=== PATIENT | female | born 1935 | race Caucasian/White ===

== ENCOUNTER → 2018-09-15 | Outpatient (CLI) | payer MEDICARE ==
[2018-09-14 15:17] VITALS: BMI 24.9
[2018-09-15 12:30] VITALS: BP 131/66; PULSE 88; RESP 18
--- NOTE | 2018-09-15 12:51 | P.CONS ---
History of Present Illness - Reason for Consult Consult date: 09/15/18 - Chief Complaint Lower back pain - History of Present Illness This is an 82-year-old gentleman with a one-year history of lower back pain. The patient started with no precipitating events however he had lumbar laminectomy about 5 years ago. The patient denies any bowel or bladder dysfunction or any weakness in the lower extremities . His pain gets worse by standing for too long however sitting down decreases his pain significantly. The patient denies any radiation of his pain to the lower extremities. Review of Systems Constitutional: Denies chills, Denies fever Cardiovascular: Denies chest pain, Denies shortness of breath Respiratory: Denies cough Musculoskeletal: Reports as per HPI Neurological: Reports as per HPI Past Medical History Past Medical History: Coronary Artery Disease (CAD), Diabetes Mellitus, Hyperlipidemia, Hypertension Additional Past Medical History / Comment(s): lupus-low platelets,diet controlled History of Any Multi-Drug Resistant Organisms: None Reported Past Surgical History: Appendectomy, Back Surgery, Coronary Bypass/CABG, Heart Catheterization With Stent Additional Past Surgical History / Comment(s): CABG 1995,heart cath x4 with 4 stents,aortic aneurysm with graft,laminectomy l4-l5 Past Anesthesia/Blood Transfusion Reactions: No Reported Reaction Date of Last Stent Placement:: 2013 Smoking Status: Former smoker - Past Family History Mother Family Medical History: No Reported History Medications and Allergies Home Medications Medication Instructions Recorded Confirmed Type Aspirin 81 mg PO DAILY 09/14/18 09/14/18 History Carvedilol [Coreg] 3.125 mg PO BID 09/14/18 09/14/18 History Fenofibrate,Micronized 134 mg PO DAILY 09/14/18 09/14/18 History [Fenofibrate] Gabapentin [Neurontin] 800 mg PO TID 09/14/18 09/14/18 History Hydroxychloroquine Sulfate 200 mg PO DAILY 09/14/18 09/14/18 History [Plaquenil] Isosorbide Mononitrate [Ismo] 20 mg PO DAILY 09/14/18 09/14/18 History Multivit-Min/FA/Lycopen/Lutein 1 each PO DAILY 09/14/18 09/14/18 History [Centrum Silver Tablet] Mycophenolate Mofetil [Cellcept] 500 mg PO BID 09/14/18 09/14/18 History Pravastatin Sodium [Pravachol] 10 mg PO DAILY 09/14/18 09/14/18 History Allergies Allergy/AdvReac Type Severity Reaction Status Date / Time No Known Allergies Allergy Verified 09/14/18 15:05 Physical Exam Vitals: Vital Signs Pulse Resp BP Pulse Ox 09/15/18 12:17 88 18 131/66 97 Intake and Output 09/14/18 09/15/18 09/15/18 22:59 06:59 14:59 Other: Weight 65.771 kg - Constitutional General appearance: thin - EENT Eyes: PERRLA - Respiratory Respiratory: bilateral: CTA - Cardiovascular Rhythm: regular - Neurologic The physical exam was done in the patient's wheelchair. The patient denies using wheelchair at home. Neuro exam of the lower extremities showed areflexia, normal muscle strength bilaterally and symmetrically. He has mild tenderness around his well-healed scar from his previous back surgery bilaterally in the lumbar area. mild tenderness around the sacroiliac joints bilaterally. Straight leg raising test negative bilaterally Neurologic: CNII-XII intact - Psychiatric Psychiatric: A&O x's 3, appropriate affect, intact judgment & insight Results Results: Lumbar spine MRI shows postoperative left hemilaminectomy at the L3 4 and L4 5 levels, the degenerative disc disease and facet arthropathy, moderate neural foraminal stenosis at the L3-L4 level and bilaterally at the L4 5 level. Assessment and Plan Plan: An 82-year-old gentleman with axial lower back pain with no neurologic changes in the lower extremities. The patient may benefit from getting a diagnostic lumbar medial branch block under fluoroscopic guidance the lumbar area bilaterally and in the future if this one does not help his pain then we'll might need to do bilateral sacroiliac joint steroid injection under fluoroscopic guidance Diagnostically. In that the patient has lumbar stenosis on MRI however he denies any symptoms in the lower extremities. He wants to be a good candidate for caudal epidural steroid injection with lysis of adhesions in the future of the above-mentioned procedures do not help his pain. PQRS measures: 1-Patient's medications are documented in the chart. 2-Tobacco use is negative, counseling given 3-Patient has had a pneumococcal vaccine. 4-Advanced care planning discussed, patient unable to give 5-Opioid contract not signed with the patient. 6-Pain positive, follow-up visit or procedure scheduled 7-Patient's blood pressure measured and documented within normal limits. 8-Patient's weight was measured, and body mass index ABOVE the normal limits, and counseling was done. Patient instructed to follow up with PCP. 9-Patient WAS NOT identified as an unhealthy alcohol user.
== END | disposition home or self-care (01) ==
LOC: PNWHC3 12:01
PROVIDERS: ATTEND Anesthesiology
DX: M54.5 Low back pain (principal); I25.10 Atherosclerotic heart disease of native coronary artery without angina pectoris; E11.9 Type 2 diabetes mellitus without complications; E78.5 Hyperlipidemia, unspecified; I10 Essential (primary) hypertension; Z87.891 Personal history of nicotine dependence; Z79.82 Long term (current) use of aspirin; Z79.899 Other long term (current) drug therapy
CPT/HCPCS: 99201

== ENCOUNTER 2018-10-14 08:06 | Day surgery (SDC) | payer MEDICARE ==
[2018-09-22 16:01] VITALS: BMI 23.9
[~2018-10-14 08:06] MED LIST: LACTATED RINGERS 1,000 ML IV SCH
[2018-10-14] MEDS ORDERED: LIDOCAINE 1% 20 ML VIAL (10MG/ML) FOR IV START INTRADERMA ONE (08:35)
[2018-10-14 08:36] LABS: Glucose,Whole Blood 92 mg/dL (75-99)
[2018-10-14 08:38] VITALS: TEMP 97.3
--- NOTE | 2018-10-14 09:37 | P.PCN ---
Date of Procedure: 10/14/18 Surgeon: Pennie Stratton Pathology: none sent Condition: stable Disposition: PACU Description of Procedure: PREOPERATIVE DIAGNOSIS : 1- Lumbar spondylosis with Facet Arthropathy without myelopathy . 2- Lumber degenerative disc disease 3-postlaminectomy pain syndrome POSTOPERATIVE DIAGNOSIS: 1- Lumbar spondylosis with Facet Arthropathy without myelopathy . 2- Lumber degenerative disc disease 3-postlaminectomy pain syndrome PROCEDURE: Diagnostic bilateral L3 -4 , L4 -5 , and L5-S1 medial branch block under fluoroscopy ANESTHESIA: Local with 1% lidocaine; IV moderate conscious sedation with Versed 2 mg . EBL: Negligible COMPLICATION: None. PROCEDURE INDICATION: Chronic low back pain secondary to Facet arthropathy unresponsive to conservative treatment. PROCEDURE DESCRIPTION: the patient was seen and identified in the preop holding area , risks and benefits and possible complications of the procedure and alternatives were discussed with the patient, and the patient agreed to proceed with the procedure and signed the consent. IV was started and vital signs monitored during the procedure and fluoroscopy was used to maximize the benefit and accuracy of the needle placement, sedation was given to decrease patient anxiety, patient was taken to the procedure room and placed in prone position vital signs monitored. The patient was brought into the procedure room and placed in prone position. Skin was prepped with Chloraprep and draped in a sterile manner. The patient had an aortic aneurysm repair with a sleeve which obscured the view slightly on fluoroscopy. Lidocaine 1% was used to numb the skin up at the target points that were chosen as follows: at the L5-S1 level which corresponds to the dorsal ramus of L5 the target points were at the superior medial aspect of the sacral ala on each side of the spine on the AP view of fluoroscopy, and for the L3 and L4 medial branches the target points were the connection between the transverse process and the superior to go process of L4 and L5 respectively on the oblique views of fluoroscopy. I used 22-gauge 3-1/2 inch Quincke spinal needles for this procedure and after contacting bone at the target points mentioned above I injected 1 mL of a mixture of Kenalog 40 mg +5 MLS of Marcaine 0.5% PF . Patient tolerated procedure well. At the end of the procedure the needles removed and a bandage applied after the skin was cleaned the cleaning solution. patient was then taken to the recovery room in stable condition and monitored in the recovery room for 20-30 minutes and discharged home in stable condition after discharge criteria met .
[2018-10-14] MEDS ORDERED: LACTATED RINGERS 1,000 ML IV ONE (09:41)
[2018-10-14 09:45] VITALS: RESP 16
[2018-10-14 09:59] VITALS: BP 148/74; PULSE 51
--- NOTE | 2018-10-14 10:03 | FL ---
EXAMINATION TYPE: FL guided pain mgmt statistic DATE OF EXAM: 10/14/2018 CLINICAL HISTORY: Low back pain. TECHNIQUE: Fluoroscopy. COMPARISON: None. FINDINGS: Fluoroscopic guidance was provided during pain relief procedure performed by Dr. Stratton . A total of 14 seconds of fluoroscopic time was utilized during the procedure and 4 spot images are acquired. Images acquired shows needle localization at several levels in the lumbar spine with overl shawn aortobiiliac stent graft. IMPRESSION: As Above.
== END 2018-10-14 10:32 | disposition home or self-care (01) ==
LOC: ORPAIN 08:06
PROVIDERS: ATTEND Anesthesiology
DX: G89.29 Other chronic pain (principal); M47.816 Spondylosis without myelopathy or radiculopathy, lumbar region; M51.36 Other intervertebral disc degeneration, lumbar region; M96.1 Postlaminectomy syndrome, not elsewhere classified; I25.10 Atherosclerotic heart disease of native coronary artery without angina pectoris; I10 Essential (primary) hypertension; Z87.891 Personal history of nicotine dependence; E11.9 Type 2 diabetes mellitus without complications; E78.5 Hyperlipidemia, unspecified; M32.9 Systemic lupus erythematosus, unspecified; D69.6 Thrombocytopenia, unspecified; Z95.1 Presence of aortocoronary bypass graft; Z95.5 Presence of coronary angioplasty implant and graft; Z79.82 Long term (current) use of aspirin; Z79.899 Other long term (current) drug therapy
CPT/HCPCS: 64493; 64494; 64495; J2250; J3301; 99152

== ENCOUNTER 2018-11-05 08:28 | Day surgery (SDC) | payer MEDICARE ==
[2018-11-03 13:51] VITALS: BMI 23.9
[2018-11-05 08:51] VITALS: TEMP 97.1
[2018-11-05] MEDS ORDERED: LIDOCAINE 1% 20 ML VIAL (10MG/ML) FOR IV START INTRADERMA ONE (09:00)
[2018-11-05 09:05] LABS: Glucose,Whole Blood 101 mg/dL (75-99)
--- NOTE | 2018-11-05 09:33 | P.PCN ---
Date of Procedure: 11/05/18 Surgeon: Pennie Stratton Pathology: none sent Condition: stable Disposition: PACU Description of Procedure: PREOPERATIVE DIAGNOSIS : 1- Lumbar spondylosis with Facet Arthropathy without myelopathy . 2- Lumber degenerative disc disease POSTOPERATIVE DIAGNOSIS: 1- Lumbar spondylosis with Facet Arthropathy without myelopathy . 2- Lumber degenerative disc disease PROCEDURE: Diagnostic bilateral L2-3,L3 -4 , L4 -5 , and L5-S1 medial branch block under fluoroscopy ANESTHESIA: Local with 1% lidocaine; IV moderate conscious sedation with Versed 1 mg . EBL: Negligible COMPLICATION: None. PROCEDURE INDICATION: Chronic low back pain secondary to Facet arthropathy unresponsive to conservative treatment. PROCEDURE DESCRIPTION: the patient was seen and identified in the preop holding area , risks and benefits and possible complications of the procedure and alternatives were discussed with the patient, and the patient agreed to proceed with the procedure and signed the consent. IV was started and vital signs monitored during the procedure and fluoroscopy was used to maximize the benefit and accuracy of the needle placement, sedation was given to decrease patient anxiety, patient was taken to the procedure room and placed in prone position vital signs monitored. The patient's pain has improved since his first medial branch diagnostic block however the patient would like the level of block to go higher to cover more of the back pain and that's why I'm going to do one more level today. The patient was brought into the procedure room and placed in prone position. Skin was prepped with Chloraprep and draped in a sterile manner. Lidocaine 1% was used to numb the skin up at the target points that were chosen as follows: at the L5-S1 level which corresponds to the dorsal ramus of L5 the target points were at the superior medial aspect of the sacral ala on each side of the spine on the AP view of fluoroscopy, and for theL1,L2, L3 and L4 medial branches the target points were the connection between the transverse process and the superior to go process of L2,L3, L4 and L5 respectively on the oblique views of fluoroscopy. I used 22-gauge 3-1/2 inch Quincke spinal needles for this procedure and after contacting bone at the target points mentioned above I injected 1 mL of a mixture of Kenalog 40 mg +5 MLS of Marcaine 0.5% PF . Patient tolerated procedure well. At the end of the procedure the needles removed and a bandage applied after the skin was cleaned the cleaning solution. patient was then taken to the recovery room in stable condition and monitored in the recovery room for 20-30 minutes and discharged home in stable condition after discharge criteria met . Of note the patient has an aortic sleeve for aortic aneurysm repair in the abdominal area ,which has obscured the x-ray view slightly today.
[2018-11-05] MEDS ORDERED: IV FLUID CONTINUATION 1,000 ML IV ONE (09:35)
[2018-11-05 09:38] VITALS: RESP 16
[2018-11-05 09:56] VITALS: BP 122/74; PULSE 66
--- NOTE | 2018-11-05 10:32 | FL ---
EXAMINATION TYPE: FL guided pain mgmt statistic DATE OF EXAM: 11/05/2018 CLINICAL HISTORY: Back pain TECHNIQUE: Fluoroscopy. COMPARISON: None. FINDINGS: Fluoroscopic guidance was provided during procedure performed by Dr. Stratton. A total of 9 seconds of fluoroscopic time was utilized during the procedure and 5 spot images was acquired demon strating multilevel localization of the lumbar spine and aortobiiliac endovascular stent. IMPRESSION: As Above.
== END 2018-11-05 12:00 | disposition home or self-care (01) ==
LOC: ORPAIN 08:28
PROVIDERS: ATTEND Anesthesiology
DX: G89.29 Other chronic pain (principal); M47.816 Spondylosis without myelopathy or radiculopathy, lumbar region; M51.36 Other intervertebral disc degeneration, lumbar region; E11.9 Type 2 diabetes mellitus without complications
CPT/HCPCS: 64493; 64494; 64495; J2250; 99152

== ENCOUNTER → 2018-11-23 | Outpatient (CLI) | payer MEDICARE ==
[2018-11-23 12:26] VITALS: BP 144/74; PULSE 58; RESP 16
--- NOTE | 2018-11-23 13:04 | P.PAINPG ---
Subjective Progress Note Date: 11/23/18 This is a follow-up visit for this 83 years old male with a history of severe low back pain diagnosed with lumbar spondylosis with lumbar facet arthropathy, status post diagnostic medial branch block lumbar area L2-3, L3 4, L4 5, L5-S1, x2 patient reported that his pain level was 9/10 before the first diagnostic block dropped to 0/10 after the diagnostic block and the pain relief was for 3-4 days , and he gets similar result with the second diagnostic medial branch block, patient continues to ambulate using cane, he denies any motor or sensory deficits reported that his pain increases with any activity ,he has no fever or night sweats Objective - Vital Signs Vital signs: Vital Signs Temp Pulse 58 L 11/23/18 12:22 Resp 16 11/23/18 12:22 BP 144/74 11/23/18 12:22 Pulse Ox 97 11/23/18 12:22 Intake & Output 11/22/18 11/23/18 11/23/18 18:59 06:59 18:59 Weight 65.317 kg - Exam Physical Examinations : -Constitutiona : Cooperative , not in acute distress . -HEENT : nech ; supple , no Lymphadenopathy , normal thyroid size . eyes : no ptosis , no icterus, no photophobia . - neurologic : Cranial nerve II to XII intact , no focal neurological deffecit . -psychatric : alert , oriented X 3 , appropriate affect , intact judgment and insight . -Lymphatic : no Lymphadenopathy . - musculoskeltal : . Lumber spine moter stegnth lower extremities ,thigh and legs 5/5 Right side , 5/5 Left side deep tendon reflexes : normal Knee Jerk , normal ankle Jerk positive lumber facet Loading Test Range of motion of the lumbar spine Flexion 30 degrees, extension 10 degrees Assessment and Plan Plan: assessment and plan= chronic severe low back pain secondary to lumbar spondylosis and lumbar facet arthropathy he had good results with the diagnostic medial branch block lumbar area, Would be good candidate RFA of the medial branch lumbar area L2-3, L3 4, L45, [id number] first, and right side later on Time with Patient: Less than 30 PQRS Measure Charge Sheet Measure #130: Documentation of Current Meds in Medical Chart: Patient's medications documented in chart Measure #226: Tobacco Use: Screen & Cessation Intervention: Pt not a tobacco user Measure #111: Pneumonia Vaccination: Pneumococcal vaccine administered or previously received Measure #47: Advance Care Plan: Advance care planning discussed & documented, pt chose/unable to give Measure #412: Opioid Treatment Agreement: No documentation of signed opioid treatment agreement Measure #408: Opioid Therapy Follow-up Evaluation: Patient had NO f/u eval minimum every 3 months during opioid therapy Measure #317: Preventitive Care & Scrn High Bld Press & F/U: Pre-hypertensive or hypertensive BP documented, pt will f/u with PCP Measure #128: Body Mass Index (BMI) Screening & Follow-up: BMI documented ABOVE normal parameters - f/u documented Measure #131: Pain Assessment & Follow-up: Pain positive & plan documented, Follow-up scheduled Measure #431: Unhealthy Alcohol Use Preventative Care & Scrn: Patient not identified as an unhealthy alcohol user PQRS Narrative: Smoking Status Former smoker Do You Want the Pneumonia Vaccine Up to Date Vaccine AT THIS TIME? Blood Pressure 144/74 Pain Intensity [Lower Back] 7 Scale Used Numeric (1 - 10) Hx Alcohol Use (MH) No Home Medications: Ambulatory Orders Aspirin 81 mg PO DAILY 09/14/18 Carvedilol [Coreg] 3.125 mg PO BID 09/14/18 Fenofibrate,Micronized [Fenofibrate] 134 mg PO DAILY 09/14/18 Gabapentin [Neurontin] 800 mg PO TID 09/14/18 Hydroxychloroquine Sulfate [Plaquenil] 200 mg PO BID 09/14/18 Isosorbide Mononitrate [Ismo] 20 mg PO DAILY 09/14/18 Multivit-Min/FA/Lycopen/Lutein [Centrum Silver Tablet] 1 each PO DAILY 09/14/18 Mycophenolate Mofetil [Cellcept] 500 mg PO BID 09/14/18 Pravastatin Sodium [Pravachol] 10 mg PO HS 09/14/18 Nitroglycerin Sl Tabs [Nitrostat] 0.4 mg SUBLINGUAL Q5M PRN 09/30/18 Naproxen Sodium [Aleve] 2 tab PO DIRECTED PRN 11/23/18 Controlled Substance Measures - Controlled Substance Measures Is patient prescribed a controlled substance at discharge?: No
== END | disposition home or self-care (01) ==
LOC: PNWHC3 12:03
PROVIDERS: ATTEND Specialist
DX: G89.29 Other chronic pain (principal); M47.816 Spondylosis without myelopathy or radiculopathy, lumbar region; M46.86 Other specified inflammatory spondylopathies, lumbar region; Z87.891 Personal history of nicotine dependence; Z79.1 Long term (current) use of non-steroidal anti-inflammatories (NSAID); Z79.899 Other long term (current) drug therapy; Z79.82 Long term (current) use of aspirin
CPT/HCPCS: 99211

== ENCOUNTER 2018-12-15 07:55 | Day surgery (SDC) | payer MEDICARE ==
[2018-12-14 08:45] VITALS: BMI 23.9
[2018-12-15 08:08] VITALS: TEMP 97.1
[2018-12-15] MEDS ORDERED: LIDOCAINE 1% 20 ML VIAL (10MG/ML) FOR IV START INTRADERMA ONE (08:13)
[2018-12-15] MEDS ORDERED: LACTATED RINGERS 1,000 ML IV ONE (08:13)
[2018-12-15 08:16] LABS: Glucose,Whole Blood 92 mg/dL (75-99)
[2018-12-15 09:16] VITALS: BP 130/70; PULSE 60; RESP 16
[2018-12-15] MEDS ORDERED: IV FLUID CONTINUATION 1,000 ML IV ONE (09:16)
--- NOTE | 2018-12-15 09:55 | FL ---
EXAMINATION TYPE: FL guided pain mgmt statistic DATE OF EXAM: 12/15/2018 CLINICAL HISTORY: Low back pain. TECHNIQUE: Fluoroscopy. COMPARISON: None. FINDINGS: Fluoroscopic guidance was provided during pain relief procedure performed by Dr. Banks . A total of 7 seconds of fluoroscopic time was utilized during the procedure and two spot images are acquired. Images acquired shows needle localization at multiple levels of the lumbosacral spine and v ascular stent of aorta and common iliac arteries. IMPRESSION: As Above.
--- NOTE | 2018-12-15 15:06 | P.PCN ---
Date of Procedure: 12/15/18 Surgeon: Lux Banks Description of Procedure: Procedure(s) Performed: PREOPERATIVE DIAGNOSIS: Lumbar Spondylosis POSTOPERATIVE DIAGNOSIS: Same PROCEDURES: Radiofrequency ablation left L3 4, L4 5, L5-S1 with fluoroscopic guidance SURGEON: Lux Banks MD. ANESTHESIA: Moderate sedation with intravenous midazepam and fentanyl EBL: Minimal PROCEDURE INDICATION: The patient with low back pain secondary to lumbar facet arthropathy who had more than 50% relief of pain with previous diagnostic lumbar medial branch block with bupivacaine. PROCEDURE DESCRIPTION / TECHNIQUE: The patient was seen and identified in the preoperative area. Risks, benefits, complications, including but not limited to risk of infection ,bleeding , allergic reactions to the medications and incomplete pain relief , and alternatives were discussed with the patient, the patient agreed to proceed with the procedure and signed the consent. IV was started. The operative site was marked. Patient was taken to the OR and time out was completed. The patient was placed in the prone position on the procedure table. The lumber area was prepped and draped in the usual sterile fashion. . Vital signs were closely monitored during the procedure .IV sedation was used during the procedure to decrease patients anxiety. Using AP and then oblique fluoroscopy, the ``eye of the Moustapha dog corresponding to the connection between the superior and transverse articular processes of the above-mentioned levels were identified, marked, and localized with 1% lidocaine. Subsequently, a 20 [id number] radiofrequency cannula with a 10-mm active tip was advanced guided by fluoroscopy to each of the ``eyes of the Moustapha dog at each site then underwent sensory testing at 50 Hz and 0 to 1 volt and motor testing at 2.5 Hz and 0 to 3 volt with local stimulation, but no radicular symptoms down the legs. Then the sites underwent radiofrequency thermocoagulation at 80 degrees celsius for 90 seconds after injecting 0.5 ml of PF lidocaine 1%. then After the thermocoagulation done , 1 ml of the block solution containing depomedrol 40 mg and 4 ml of marcaine 0.5% was inject ed in divided doses at each levels after negative aspiration of CSF and blood and with no paresthesias. Sterile dressings were applied. COMPLICATIONS: No acute complications. DISPOSITION / PLANS: The patient was placed in a supine position and transferred to the recovery area in a stable condition for observation and was discharged from the recovery room after meeting discharge criteria. Home discharge instructions given to the patient by the staff. The patient was reexamined prior to discharge. .
== END 2018-12-15 09:42 | disposition home or self-care (01) ==
LOC: ORPAIN 07:55
PROVIDERS: ATTEND Pain Medicine Pain Medicine
DX: M47.9 Spondylosis, unspecified (principal); G89.29 Other chronic pain; Z87.891 Personal history of nicotine dependence; Z79.82 Long term (current) use of aspirin; Z79.1 Long term (current) use of non-steroidal anti-inflammatories (NSAID); Z79.899 Other long term (current) drug therapy
CPT/HCPCS: 64635; 64636 ×2; J2250; J1030; J2001; J3010; 99152

== ENCOUNTER 2018-12-29 08:09 | Day surgery (SDC) | payer MEDICARE ==
[2018-12-24 09:11] VITALS: BMI 23.9
[2018-12-29 08:38] VITALS: RESP 18; TEMP 97.4
[2018-12-29] MEDS ORDERED: LACTATED RINGERS 1,000 ML IV ONE (08:38)
[2018-12-29 08:45] LABS: Glucose,Whole Blood 103 mg/dL (75-99)
[2018-12-29] MEDS ORDERED: LIDOCAINE 1% 20 ML VIAL (10MG/ML) FOR IV START INTRADERMA ONE (08:48)
--- NOTE | 2018-12-29 09:48 | P.PCN ---
Date of Procedure: 12/29/18 Procedure(s) Performed: PREOPERATIVE DIAGNOSIS: 1-Lumbar Spondylosis with Facet Arthropathy without myelopathy. 2- Lumber degenerative disc disease POSTOPERATIVE DIAGNOSIS: 1- Lumbar Spondylosis with Facet Arthropathy without myelopathy. 2- Lumber degenerative disc disease PROCEDURES : Right Radiofrequency thermocoagulation, L3-L4, L4-L5, and L5-S1 medial branch, with fluoroscopic guidance ANESTHESIA: Moderate sedation with intravenous versed 1 mg and fentaneyl 50 mcg, and local infiltration with Ropivacaine 0.5 % . EBL: Minimal PROCEDURE INDICATION: The patient with low back pain secondary to lumbar facet arthropathy who had more than 50% relief of her pain with previous diagnostic lumbar medial branch block with bupivacaine. PROCEDURE DESCRIPTION / TECHNIQUE: The patient was seen and identified in the preoperative area. Risks, benefits, complications, including but not limited to risk of infection ,bleeding , allergic reactions to the medications and no complete pain releife , and alternatives were discussed with the patient, the patient agreed to proceed with the procedure and signed the consent. IV was started. Vital signs remained stable throughout the procedure. Patient was taken to the OR and time out was completed. The patient was placed in the prone position on the procedure table. The lumber area was prepped and draped in the usual sterile fashion. . Vital signs were closely monitored during the procedure .IV sedation was used during the procedure to decrease patients anxiety. Using AP and then oblique fluoroscopy, the ``eye of the Moustapha dog corresponding to the connection between the superior and transverse articular processes of right L3, L4, and L5 were identified, marked, and localized with 1% lidocaine. Subsequently, a 18 [id number] radiofrequency cannula with a 10- mm active tip was advanced guided by fluoroscopy to each of the``eyes of the Moustapha dog at right L3, L4, and L5. Each site then underwent sensory testing at 50 Hz and 0 to 1 volt and motor testing at 2.5 Hz and 0 to 3 volt with local stimulation, but no radicular symptoms down the legs. Thereafter the right L3-4, L4-5, and L5-S1 sites underwent radiofrequency thermocoagulation at 80 degrees celsius for 90 seconds after injecting 0.5 ml of PF Ropivacaine 1ml, then after the thermocoagulation done , 1 ml of the block solution containing Depo-Medrol 40 mg and 3 ml of Ropivacaine 0.5% was injected at the right L3-4 , L4-5 , and L5-S1, levels after negative aspiration of CSF and blood and with no paresthesias. Cannulas were retracted while injecting lidocaine 1% until the needle is out. At the end of the procedure, the skin was cleansed and bandages were applied. COMPLICATIONS: No acute complications. DISPOSITION / PLANS: The patient was placed in a supine position and transferred to the recovery area in a stable condition for observation and was discharged from the recovery room after meeting discharge criteria. Home discharge instructions given to the patient by the staff. The patient was reexamined prior to discharge. The patient will schedule a follow up in the clinic in 2-4 weeks.
--- NOTE | 2018-12-29 10:08 | FL ---
EXAMINATION TYPE: FL guided pain mgmt statistic DATE OF EXAM: 12/29/2018 CLINICAL HISTORY: Low back pain. TECHNIQUE: Fluoroscopy. COMPARISON: None. FINDINGS: Fluoroscopic guidance was provided during pain relief procedure performed by Dr. Francis . A total of 17 seconds of fluoroscopic time was utilized during the procedure and 3 spot images are acquired. Images acquired shows needle localization of the lumbar spine at multiple levels in additi on to a vascular stent. IMPRESSION: As Above.
[2018-12-29 10:15] VITALS: BP 137/65; PULSE 52
== END 2018-12-29 10:36 | disposition home or self-care (01) ==
LOC: ORPAIN 08:09
PROVIDERS: ATTEND Specialist
DX: M47.816 Spondylosis without myelopathy or radiculopathy, lumbar region (principal); M51.36 Other intervertebral disc degeneration, lumbar region
CPT/HCPCS: 64635; 64636 ×2; J2250; J1030; J3010; 99152

== ENCOUNTER → 2019-01-14 | Outpatient (CLI) | payer MEDICARE ==
[2019-01-14 12:12] VITALS: BP 115/68; PULSE 59; RESP 16
--- NOTE | 2019-01-15 15:55 | P.PAINPG ---
Subjective Progress Note Date: 01/14/19 This is a follow-up visit for this 83 year old male with a history of severe low back pain diagnosed with lumbar spondylosis with lumbar facet arthropathy, status post radiofrequency to the lumbar area L2-3, L3 4, L4 5, L5-S1 bilaterally done on 12/15/2018 and 12/29/2018. The patient reports no benefit f rom this procedure, although he's is able to garden and weed whack on a daily basis, with breaks. He would like to be more physically active. He currently ambulates with a cane and is bent forward at the waist. He would like his posture to improve to be upright. He reports that he occasionally takes Tylenol to help with his pain. Pain is localized to the low back region without radiation to extremities. He denies new weakness, numbness, tingling, bowel or bladder dysfunction. Objective GENERAL: Well appearing, in no acute distress, sitting in wheelchair with cane by his side PSYCH: Mood and affect is appropriate. Awake, alert, and oriented SKIN: Skin color, texture, turgor normal, no rashes or lesions HEENT: Normocephalic, atraumatic. EOM intact CV: No pedal edema RESP: Respirations are unlabored, no audible wheezing GI: Abdomen non-distended MUSCULOSKELETAL: Bilateral lower extremity strength is normal and symmetric. No atrophy or tone abnormalities are noted. Lumbar spine: Straight leg raising in the sitting position is negative for radicular pain. Tenderness to palpation over the lumbar spine and paraspinous muscles. Positive for pain with facet loading and back extension/rotation. Buttocks: No pain to palpation over the PSIS Extremities: Peripheral joint ROM is full and pain free without obvious instability or laxity in all four extremities. No edema or skin discolorations noted. NEUR: Bilateral lower extremity coordination and muscle stretch reflexes are physiologic and symmetric. Negative clonus. No loss of sensation is noted. Cranial nerves are grossly intact. Assessment and Plan Plan: assessment and plan= chronic severe low back pain secondary to lumbar spondylosis and lumbar facet arthropathy: Unfortunately, patient did not benefit from a lumbar radiofrequency ablation. We discussed that there is a small chance that the procedure would not work despite positive diagnostic blocks 2. Patient expressed understanding. Today I recommended using Tylenol [id number] milligrams by mouth twice a day when necessary, to be used half an hour before his activity which mainly includes working in the garden. I also encouraged him to continue with his home exercise program. He has been to physical therapy in the past and does not want to repeat physical therapy as he feels he understands the exercises well. I also gave him a handout of lumbar stretching, strengthening and core strengthening exercises which he was appreciative of. Follow-up: When necessary Objective - Vital Signs Vital signs: Vital Signs Temp Pulse 59 L 01/14/19 12:08 Resp 16 01/14/19 12:08 BP 115/68 01/14/19 12:08 Pulse Ox 95 01/14/19 12:08 Intake & Output 01/14/19 01/15/19 01/15/19 18:59 06:59 18:59 Weight 64.864 kg PQRS Measure Charge Sheet Measure #130: Documentation of Current Meds in Medical Chart: Patient's medications documented in chart Measure #47: Advance Care Plan: Advance care planning discussed & documented, pt chose/unable to give Measure #412: Opioid Treatment Agreement: No documentation of signed opioid t reatment agreement Measure #317: Preventitive Care & Scrn High Bld Press & F/U: Normal blood pressure, f/u not required Measure #128: Body Mass Index (BMI) Screening & Follow-up: BMI documented within normal parameters Measure #131: Pain Assessment & Follow-up: Pain positive & plan documented, Follow-up PRN Measure #431: Unhealthy Alcohol Use Preventative Care & Scrn: Patient not identified as an unhealthy alcohol user PQRS Narrative: Smoking Status Former smoker Blood Pressure 115/68 Pain Intensity [Lower Back] 5 Scale Used Numeric (1 - 10) Hx Alcohol Use (MH) No Home Medications: Ambulatory Orders Aspirin 81 mg PO DAILY 09/14/18 Carvedilol [Coreg] 3.125 mg PO BID 09/14/18 Fenofibrate,Micronized [Fenofibrate] 134 mg PO DAILY 09/14/18 Gabapentin [Neurontin] 800 mg PO TID 09/14/18 Hydroxychloroquine Sulfate [Plaquenil] 200 mg PO BID 09/14/18 Isosorbide Mononitrate [Ismo] 20 mg PO DAILY 09/14/18 Multivit-Min/FA/Lycopen/Lutein [Centrum Silver Tablet] 1 each PO DAILY 09/14/18 Mycophenolate Mofetil [Cellcept] 500 mg PO BID 09/14/18 Pravastatin Sodium [Pravachol] 10 mg PO HS 09/14/18 Nitroglycerin Sl Tabs [Nitrostat] 0.4 mg SUBLINGUAL Q5M PRN 09/30/18 Naproxen Sodium [Aleve] 1 tab PO DIRECTED PRN 11/23/18 [place]-3 Fatty Acids/Fish Oil [Fish Oil 1,000 mg Softgel] 1 each PO BID 12/24/18 Controlled Substance Measures - Controlled Substance Measures Is patient prescribed a controlled substance at discharge?: No
== END ==
LOC: PNWHC3 11:54
PROVIDERS: ATTEND Anesthesiology
DX: G89.29 Other chronic pain (principal); M47.816 Spondylosis without myelopathy or radiculopathy, lumbar region; M46.96 Unspecified inflammatory spondylopathy, lumbar region; Z87.891 Personal history of nicotine dependence; Z79.82 Long term (current) use of aspirin; Z79.899 Other long term (current) drug therapy
CPT/HCPCS: 99211